=== PATIENT | female | born 1970 | race Caucasian/White ===

== ENCOUNTER 2017-09-19 11:42 | Emergency (ER) | payer BC ==
[~2017-09-19] VITALS: Ht 157.5 cm; Wt 82.1 kg
[2017-09-19] MEDS ORDERED: CEPH500 PO (12:53)
[2017-09-19] MEDS ORDERED: Prednisone20 MG PO (12:54)
[2017-09-19] MEDS ORDERED: NO ROUTINE MEDS (14:00)
== END 2017-09-19 13:05 | disposition home or self-care (01) ==
LOC: ER 11:42
DX: L23.7 Allergic contact dermatitis due to plants, except food (principal); Z88.8 Allergy status to other drugs, medicaments and biological substances
CPT/HCPCS: 99283